=== PATIENT | female | born 1990 | race African-American/Black ===

== ENCOUNTER 2021-02-02 12:14 | Emergency (ER) | payer SELFPAY ==
[~2021-02-02] VITALS: Ht 165.1 cm; Wt 95.3 kg
[2021-02-02] MEDS: IV NS 0.9% 1,000 ML BAG IV ONE ×2 (12:10→13:10)
--- NOTE | 2021-02-02 12:22 | NUR ---
PT CAME TO ER C/O NUMBNESS, BILATERAL HAND PARESTHESIA, AND GEN WEAKNESS X 1 HR. SYMPTOMS RESOLVED PRIOR TO ADMISSION. AAOX4, AMBULATORY, BREATHING EVEN AND UNLABORED, STRENGTH 5/5 IN ALL EXTREMITIES. ASSISTED TO ER BED 1, ON MONITOR. VS STABLE.
--- NOTE | 2021-02-02 13:01 | NUR ---
PT AMBULATED TO RESTROOM
--- NOTE | 2021-02-02 13:03 | NUR ---
PT RETURNED TO RESTROOM AND ASSISTED BACK TO BED. ON MONITOR. NO PRESENT COMPLAINTS AT THIS TIME.
--- NOTE | 2021-02-02 13:44 | NUR ---
Patient discharged to home in stable condition. Written and verbal after care instructions given. Patient verbalizes understanding of instruction.
--- NOTE | 2021-02-02 13:44 | NUR ---
IV removed. Catheter intact and site benign. Pressure and 4x4 applied to site. No bleeding noted.
[2021-02-02 13:45] VITALS: BP 113/68
== END 2021-02-02 13:46 | disposition home or self-care (01) ==
LOC: ER 13:07
DX: R55 Syncope and collapse (principal); Z88.5 Allergy status to narcotic agent
CPT/HCPCS: 96360; 99283; J7030